=== PATIENT | male | born 1990 | race African-American/Black ===

== ENCOUNTER 2016-11-29 12:23 | Emergency (ER) | payer OTHER ==
[2016-11-29 12:28] VITALS: BP 134/87; PULSE 76; TEMP 98.3; BMI 23.7
--- NOTE | 2016-11-29 13:25 | PDOC ---
*Physical Exam - Vital Signs Last Vital Signs Temp Pulse Resp BP Pulse Ox 98.3 F 76 20 134/87 99 11/29/16 12:24 11/29/16 12:24 11/29/16 12:24 11/29/16 12:24 11/29/16 12:24 Medical Decision Making - Medical Decision Making 11/29/16 13:25 Pt seen by the Advanced Practice Provider under my direct supervision Ancillary studies reviewed I agree with plan as outlined by the Advanced Practice Provider LILIANA Guy
--- NOTE | 2016-11-29 13:41 | PDOC ---
History of Present Illness - General Chief Complaint: Psychiatric Stated Complaint: EVALUATION Time Seen by Provider: 11/29/16 12:47 History Source: Patient - History of Present Illness Timing/Duration: other Past History - Past Medical History Allergies/Adverse Reactions: Allergies Allergy/AdvReac Type Severity Reaction Status Date / Time No Known Allergies Allergy Verified 11/29/16 12:29 Home Medications: Ambulatory Orders NK [No Known Home Medication] 11/29/16 Other medical history: NONE - Psycho/Social/Smoking Cessation Hx Suicidal Ideation: No Smoking History: Former smoker Have you smoked in the past 12 months: No If you are a former smoker, when did you quit?: 3 MO AGO Information on smoking cessation initiated: No Hx Alcohol Use: Yes (SOCIAL) Drug/Substance Use Hx: No Substance Use Type: None Review of Systems - Review of Systems Psychiatric: Yes: Depression. No: Anxiety *Physical Exam - Vital Signs Last Vital Signs Temp Pulse Resp BP Pulse Ox 98.3 F 76 20 134/87 99 11/29/16 12:24 11/29/16 12:24 11/29/16 12:24 11/29/16 12:24 11/29/16 12:24 - Physical Exam General Appearance: Yes: Appropriately Dressed. No: Apparent Distress HEENT: positive: Normal Voice Neck: positive: Supple Respiratory/Chest: negative: Respiratory Distress Integumentary: positive: Dry, Warm Neurologic: positive: Fully Oriented, Alert, Normal Mood/Affect Medical Decision Making - Medical Decision Making 11/29/16 13:09 26-year-old male, denies any past medical or psych history, presents with depressed mood. Patient states he was incarcerated for 15 months with 8 of those months being solitary confinement. States he was released 5 days ago and since then has had worsening depression. Denies SI or HI. Does admit to frequent marijuana use. Denies any other illicit drug use and no excessive alcohol use. No known psych history or prior psych admissions. As per patianthony, currently residing with family. Not currently employed or in school See exam Depression Recent incarceration +marijuana use No SI/HI Denies psych hx No sig fmhx -will have SW evaluate pt to discuss mental health options for further evaluation 11/29/16 14:05 11/29/16 14:26 Pt evaluated by NARESH and given resources. Left ED prior to being given discharge papers *DC/Admit/Observation/Transfer Diagnosis at time of Disposition: Depressed mood - Discharge Dispostion Disposition: HOME Condition at time of disposition: Stable - Patient Instructions Printed Discharge Instructions: DI for Depression -- Adult Additional Instructions: Please follow up with mental health resources Return to ED immediately for suicidal or homicidal ideation
== END 2016-11-29 14:32 | disposition home or self-care (01) ==
LOC: JER 12:23
DX: F32.89 Other specified depressive episodes (principal); F12.10 Cannabis abuse, uncomplicated
CPT/HCPCS: 99283-25

== ENCOUNTER 2022-03-09 12:32 | Emergency (ER) | payer OTHER ==
[2022-03-09 13:15] VITALS: BP 137/96; PULSE 84; RESP 18; TEMP 97.9; BMI 23.7
[2022-03-09] MEDS ORDERED: DOXYCYCLINE HYCLATE 100 MG CAPSULE PO ONE ×2 (13:55→14:08)
[2022-03-09 14:43] LABS: EPI CELLS 6 /uL (0-25.1); HYALINE CASTS 1 /uL (0-3.1); PH,URINE 6.5 (5.0-8.0); URINE APPEARANCE CLEAR; URINE BACTERIA 27 /uL (0-1359); URINE BILIRUBIN NEGATIVE (NEGATIVE); URINE COLOR YELLOW; URINE GLUCOSE (UA) NEGATIVE (NEGATIVE); URINE KETONE TRACE (NEGATIVE); URINE LEUK ESTERASE 2+ (NEGATIVE); URINE NITRITE NEGATIVE (NEGATIVE); URINE PROTEIN NEGATIVE (NEGATIVE); URINE RBC 20 /uL (0-23.9); URINE UROBILINOGEN 0.2 mg/dL (0.2-1.0); URINE WBC 375 /uL (0-25.8)
== END 2022-03-09 15:09 | disposition home or self-care (01) ==
LOC: JERFT 12:32
PROC: 3E023GC Introduction of Other Therapeutic Substance into Muscle, Percutaneous Approach (ICD-10-PCS; principal; 2022-03-09)
DX: R30.0 Dysuria (principal); R36.0 Urethral discharge without blood; Z20.2 Contact with and (suspected) exposure to infections with a predominantly sexual mode of transmission
CPT/HCPCS: 36415; 81003; 87086; 87491; 87591; 99284-25